=== PATIENT | female | born 1975 | race Caucasian/White ===

== ENCOUNTER 2023-08-01 11:59 | Emergency (ER) | payer OTHER ==
[2023-08-01 12:37] LABS: BASOPHILS ABSOLUTE AUTO 0.01 10^3/uL (0.00-0.10); BASOPHILS PERCENT AUTO 0.1 % (0.0-1.0); HEMATOCRIT 38.7 % (37.0-47.0); HEMOGLOBIN 13.4 g/dL (12.0-16.0); IMMATURE GRAN ABSOLUTE AUTO 0.01 10^3/uL (0.00-0.50); IMMATURE GRAN PERCENT AUTO 0.1 % (0.0-5.0); LYMPHOCYTES ABSOLUTE AUTO 0.31 10^3/uL (1.00-4.00); LYMPHOCYTES PERCENT AUTO 4.6 % (20.0-40.0); MEAN CORPUSCULAR HEMOGLOBIN 32.9 pg (27.0-31.0); MEAN CORPUSCULAR HGB CONC 34.6 g/dL (32.0-36.0); MEAN CORPUSCULAR VOLUME 95.1 fL (82.0-92.0); MEAN PLATELET VOLUME 9.2 fL (7.4-10.4); MONOCYTES ABSOLUTE AUTO 0.09 10^3/uL (0.10-0.80); MONOCYTES PERCENT AUTO 1.3 % (2.0-8.0); NEUTROPHILS ABSOLUTE AUTO 6.36 10^3/uL (2.50-7.00); NEUTROPHILS PERCENT AUTO 93.9 % (50.0-70.0); PLATELET COUNT,PLT 300 10^3/uL (150-400); RED BLOOD CELL COUNT 4.07 10^6/uL (3.80-5.50); RED CELL DISTRIBUTION WIDTH 15.3 % (11.5-14.5); WHITE BLOOD CELL COUNT,WBC 6.78 10^3/uL (5.00-10.00)
[2023-08-01 12:43] VITALS: BP 150/84; PULSE 75
[2023-08-01 12:51] LABS: ANION GAP 17.5 mmol/L (5-15); CALCIUM 8.5 mg/dL (8.7-10.3); CARBON DIOXIDE,CO2 22.1 mmol/L (21.0-32.0); CREATININE 0.63 mg/dL (0.51-1.17); EST CRCL DRUG DOSING (CG) 96.35 mL/min; POTASSIUM,K 3.6 mmol/L (3.5-5.1)
[2023-08-01] MEDS: ALPRAZolam 0.25 MG Tab PO ONE (13:01)
[2023-08-01] MEDS: Ondansetron 4 MG Tab.DIS PO ONE (13:02)
== END 2023-08-01 14:22 | disposition home or self-care (01) ==
LOC: KA.ED 11:59
DX: F41.9 Anxiety disorder, unspecified (principal); E66.9 Obesity, unspecified; Z79.899 Other long term (current) drug therapy; Z68.41 Body mass index [BMI] 40.0-44.9, adult
CPT/HCPCS: 36415; 80048; 85025; 99284; A9270-GY